=== PATIENT | male | born 1965 | race African-American/Black ===

== ENCOUNTER 2023-10-06 00:19 | Emergency (ER) | payer OTHER, SELFPAY ==
[2023-10-06 00:32] VITALS: BP 123/86
[2023-10-06 01:46] VITALS: BMI 29.1
--- NOTE | 2023-10-06 02:16 | ED.GENMED ---
History of Present Illness
General
Chief Complaint: Male Genito-Urinary Symptoms
Source: patient
Time Seen by Provider: 10/06/23 01:50
Nursing documentation reviewed up to this point in time: agreed with
History of Present Illness
History of Present Illness:
Pleasant 58-year-old male presents with left testicular pain and swelling. It has been happening for the last day. Patient has a history of epididymitis after procedure. He was on antibiotics several years ago. He follows with a urologist at
[facility]. Denies fever or chills. Reports no nausea or vomiting.
Review of Systems
Review of Systems
Allergies reviewed?: Yes
All Other Systems: ROS reviewed and negative except as documented in HPI and ROS
Constitutional: Denies fever or fatigue
EENT: Reports no symptoms
Respiratory: Reports no symptoms
Cardiac: Reports no symptoms
ABD/GI: Reports no symptoms
: Reports difficulty voiding and other (pelvic pain)
Musculoskeletal: Reports no symptoms
Skin: Reports no symptoms
Neurological: Reports no symptoms
Endocrine: Reports no symptoms
Hematologic/Lymphatic: Reports no symptoms
Psychiatric: Reports anxiety
Phy Exam
General Physical Exam
General Presentation: mild distress
General age: appears stated age
General Skin: warm and dry
General Habitus: normal
Cardiovascular Exam
Cardiovascular Exam: regular rate/rhythm and no edema
Pulmonary Exam
Pulmonary Exam: lungs clear, no respiratory distress and no wheezing
Gastrointestinal Exam
Gastrointestinal Exam: normal bowel sounds and non tender
Neurological Exam
Neurological Exam: alert and oriented x3
Skin Exam
Skin Exam: normal color and warm/dry
Psychiatric Exam
Psychiatric Exam: normal mood/affect
Course
Orders/Labs/Results
Orders:
Orders
10/06/23 00:35
US Scrotum Urgent
Comment:
Reason For Exam: L testicle swelling and pain
10/06/23 02:20
LevoFLOXacin [Levaquin] 500 mg PO NOW STA
Oxycodone/Acetaminophen [Percocet 5/325] 1 tablet PO NOW STA
10/06/23 04:15
Ketorolac [Toradol] 30 mg IM NOW STA
Vital Signs
Initial and Last Documented VS:
Initial Vital Signs
Temp Pulse Resp BP Pulse Ox
98.1 F 71 18 123/86 99
10/06/23 00:32 10/06/23 00:32 10/06/23 00:32 10/06/23 00:32 10/06/23 00:32
Last Documented Vital Signs
Temp Pulse Resp BP Pulse Ox
98.1 F 68 16 118/82 98
10/06/23 00:32 10/06/23 05:22 10/06/23 05:22 10/06/23 05:22 10/06/23 05:22
*Critical Care Note
Total Time (30-74mins, 75-104mins- exclusive of procedures): Not Applicable
Update Note
Update Note:
CT ABDOMEN AND PELVIS WITH IV CONTRAST
Comparison: None
IMPRESSION:
Partially visualized presumed [employer] shunt catheter terminating in the right lower quadrant.
Trace pelvic free fluid. No free air.
No bowel obstruction. No signs of colitis or diverticulitis.
Punctate nonobstructing left renal calculus. The kidneys are otherwise unremarkable.
The gallbladder and pancreas are unremarkable.
Trace gas in the urinary bladder, most commonly incidentally related to recent instrumentation or can be seen with infection.
ED Attending Note
-
Portions of this chart may have been created with voice recognition software.� Occasional wrong word or��sound alike� substitutions may have occurred due to the inherent limitations of voice recognition software.
Discharge Plan
Departure
Patient Disposition: Home (Routine Discharge)
Date of Disposition: 10/06/23
Time of Disposition: 05:10
Patient with high blood pressure during this ER visit?: Yes
Condition: Good
Discharge Problem:
Epididymitis, Orchitis
Instructions: BLOOD PRESSURE, Epididymitis and Orchitis
Prescriptions:
New
levofloxacin 500 mg tablet
500 mg PO DAILY 10 Days Qty: 10 0RF
diclofenac sodium 75 mg tablet,delayed release (DR/EC)
75 mg PO BID Qty: 10 0RF
Referrals:
Jay James MD [Non-Admitting Privileges] - As needed
Braulio Hanson Jr., MD [Active] -
Activity Restrictions/Additional Instructions:
Your prescriptions were sent electronically to the pharmacy that you specified.
It was a pleasure meeting you and taking part in your care. We hope for your continued healing and wellness.
Please read discharge instructions in their entirety. However, they are for general education and may not describe your exact diagnosis at discharge. Information on your ER visit and medical conditions were discussed with you along with appropriate
follow up information...
If indicated, please take your medications as instructed and indicated on discharge paperwork.
Please schedule a follow up appointment as directed. Call to schedule an appointment
Please return to the emergency department with ANY change in, persisting, or worsening of symptoms. If any of your symptoms do not improve, or persist, or become more severe within 6-12 hours, please return to the emergency department for further
care.
Please return to the emergency department if you develop a headache, neck pain/stiffness, fever greater than 100.4F, chest pain, shortness of breath, persistent nausea, vomiting, slurred speech, difficulty walking, numbness/tingling, weakness, signs
of infection or any other symptoms that are worrisome to you.
If you have any questions or concerns please do not hesitate to call the Hospital at or E-mail me directly at [email or web address]
Interventions
Interventions:
*Risk Screen - Suicide Last Done: 10/06/23 01:46
*General Assessment Last Done: 10/06/23 01:46
*Neglect/Abuse Screening Last Done: 10/06/23 01:46
ED- Fall Risk Assessment Last Done: 10/06/23 01:46
*ED COVID-19 Vaccine History Last Done: 10/06/23 01:46
*Nursing Disposition Last Done: 10/06/23 05:22
ED-Male Genitourinary Assessment Last Done: 10/06/23 01:46
Discharge Date and Time
Discharge Date/Time: 10/06/23 05:23
Print Language: [id number]
[2023-10-06] MEDS: LEVAQUIN 500 MG PO (02:53)
[2023-10-06] MEDS: PERCOCET 5/325 1 TABLET PO (02:54)
[2023-10-06] MEDS: TORADOL 30 MG IM (04:20)
[2023-10-06 05:22] VITALS: BP 118/82
== END 2023-10-06 05:23 | disposition home or self-care (01) ==
LOC: EMR 00:19
PROVIDERS: EMERGENCY PHYSICIAN Student in an Organized Health Care Education/Training Program
DX: N45.3 Epididymo-orchitis (principal)
CPT/HCPCS: 99284; 96372; 76870; 93976